=== PATIENT | male | born 1970 | race Caucasian/White ===

== ENCOUNTER 2022-01-26 17:33 | Inpatient (IN) | payer MEDICAID ==
[~2022-01-26] VITALS: Ht 190.5 cm; Wt 100.0 kg
[2022-01-26 19:06] LABS: BASOPHILS # (AUTO) 0.1 X10'3 (0-0.2); BASOPHILS % (AUTO) 0.4 % (0-1); EOSINOPHILS % (AUTO) 0.2 % (0-6); HEMATOCRIT 49.8 % (42.0-52.0); HEMOGLOBIN 17.1 g/dl (14.0-17.9); LYMPHOCYTES # (AUTO) 1.1 X10'3 (1.1-4.8); LYMPHOCYTES % (AUTO) 6.3 % (21-51); MEAN CORPUSCULAR HEMOGLOBIN 33.1 PG (27.0-31.0); MEAN CORPUSCULAR HGB CONC 34.4 g/dL (33.0-36.5); MEAN CORPUSCULAR VOLUME 96.3 FL (78-98); MEAN PLATELET VOLUME 8.1 FL (7.4-10.4); MONOCYTES # (AUTO) 0.8 X10'3 (0-0.9); MONOCYTES % (AUTO) 4.5 % (2-12); NEUTROPHILS # (AUTO) 15.9 X10'3 (1.8-7.7); NEUTROPHILS % (AUTO) 88.6 % (42-75); PLATELET COUNT 282 X10'3 (140-440); RED BLOOD COUNT 5.17 X10'6 (4.70-6.10); RED CELL DISTRIBUTION WIDTH 13.3 % (11.5-14.5); WHITE BLOOD COUNT 17.9 X10'3 (4.5-11.0)
[2022-01-26 19:24] LABS: ALANINE AMINOTRANSFERASE 53 U/L (12-78); ALKALINE PHOSPHATASE 81 IU/L (46-116); ANION GAP 10 (8-16); ASPARTATE AMINO TRANSFERASE 31 U/L (10-37); BILIRUBIN,TOTAL 0.8 MG/DL (0.1-1.0); BLOOD UREA NITROGEN 11 MG/DL (7-18); BUN/CREATININE RATIO 10.6 (5.4-32.0); CALCIUM 8.9 MG/DL (8.5-10.1); CHLORIDE 98 MMOL/L (99-107); CREATININE 1.04 MG/DL (0.60-1.10); GLUCOSE 122 MG/DL (70-104); LIPASE < 50 U/L (73-393); SODIUM 135 MMOL/L (135-145); TOTAL CARBON DIOXIDE 27.1 MMOL/L (24-32); TOTAL PROTEIN 8.1 G/DL (6.4-8.2); eGFR 75 ML/MIN
--- NOTE | 2022-01-26 21:49 | NUR ---
Patient reports abdominal pain circa 5 days and nausea and vomiting that began this morning.
[2022-01-26] MEDS ORDERED: pantoprazole 40MG/NS 100ML BAG 100 ML IV ONE (22:30)
[2022-01-26] MEDS ORDERED: ondansetron/PF 4mg/2ml inj IV ONE (22:30)
[2022-01-26] MEDS ORDERED: normal saline 1000ml 1,000 ML IV ONE (22:30)
[2022-01-26] MEDS ORDERED: ketorolac tromethamine 15mg/ml inj. IV ONE (22:30)
[2022-01-27] MEDS ORDERED: normal saline 1000ml 1,000 ML IV ONE (00:45)
[2022-01-27 00:55] LABS: CLARITY,URINE CLEAR (Clear); COLOR,URINE YELLOW (Yellow); GLUCOSE, URINE NEGATIVE (Neg); KETONES,URINE 15 mg/dl (Neg); LEUKOCYTE ESTERASE ,URINE NEGATIVE (Neg); NITRITES, URINE NEGATIVE (Neg); OCCULT BLOOD,URINE NEGATIVE (Neg); PH,URINE 6.5 (4.8-8.0); PROTEIN,URINE NEGATIVE (Neg); UROBILINOGEN,URINE 0.2 E.U/dL (0.2-1.0)
[2022-01-27] MEDS ORDERED: morphine 4 MG/ML inj SYRINge IV ONE (00:55)
[2022-01-27] MEDS ORDERED: piperacillin/tazo 3.375gm/50ml 50 ML IV SCH (01:02)
[2022-01-27 01:03] LABS: UA COLLECTION TYPE CLN CATCH MIDSTREAM
[2022-01-27] MEDS ORDERED: ondansetron/PF 4mg/2ml inj IV PRN (01:05)
[2022-01-27] MEDS ORDERED: magnesium Cl slow-release 64mg tablet PO PRN (01:05)
[2022-01-27] MEDS ORDERED: potassium CL 10mEq/100ml bag 100 ML IV PRN (01:05)
[2022-01-27] MEDS ORDERED: morphine 2 MG/ML inj. syringe IV PRN (01:05)
[2022-01-27] MEDS ORDERED: POTASSIUM BICARB 20meq eff tab 20 MEQ TABLET.EFF PO PRN ×2 (01:05)
[2022-01-27] MEDS ORDERED: acetaminophen 325mg tablet PO PRN (01:05)
[2022-01-27] MEDS ORDERED: magnesium 4gm in 100ml NS 100 ML IV PRN (01:05)
[2022-01-27] MEDS ORDERED: magnesium 2GM in 50ml NS 50 ML IV PRN (01:05)
[2022-01-27] MEDS: piperacillin/tazo 3.375gm/50ml 50 ML IV SCH ×3 (01:12→17:41)
[2022-01-27] MEDS: normal saline 1000ml 1,000 ML IV SCH ×2 (01:56→11:05)
[2022-01-27] MEDS ORDERED: NO HOME MEDS (02:47)
[2022-01-27] MEDS: morphine 2 MG/ML inj. syringe IV PRN ×3 (04:06→23:01)
[2022-01-27 06:46] LABS: POTASSIUM 3.8 MMOL/L (3.5-5.1)
[2022-01-27] MEDS: K and/or MAG REPLACEMENT MC SCH ×2 (08:00→20:00)
--- NOTE | 2022-01-27 17:22 | NUR ---
TELEPHONE REPORT TO YULISA QUESADA.
--- NOTE | 2022-01-27 17:50 | NUR ---
Received pt from ED via following receipt of report. Pt oriented to room & POC, bed low call light in reach.
--- NOTE | 2022-01-27 18:57 | NUR ---
Problems reprioritized. Patient report given, questions answered & plan of care reviewed with Anne RN.
[2022-01-27 22:00] VITALS: BP 142/87
[2022-01-28] VITALS (23 sets, daily range): BP systolic 115–141; BP diastolic 63–91
[2022-01-28] MEDS: piperacillin/tazo 3.375gm/50ml 50 ML IV SCH ×3 (00:46→16:10)
[2022-01-28] MEDS: normal saline 1000ml 1,000 ML IV SCH ×3 (00:47→20:38)
[2022-01-28 07:56] LABS: BASOPHILS % (AUTO) 0.4 % (0-1); EOSINOPHILS # (AUTO) 0.2 X10'3 (0-0.9); EOSINOPHILS % (AUTO) 1.6 % (0-6); HEMATOCRIT 44.5 % (42.0-52.0); HEMOGLOBIN 15.3 g/dl (14.0-17.9); LYMPHOCYTES # (AUTO) 2.2 X10'3 (1.1-4.8); LYMPHOCYTES % (AUTO) 18.8 % (21-51); MEAN CORPUSCULAR HEMOGLOBIN 33.6 PG (27.0-31.0); MEAN CORPUSCULAR HGB CONC 34.4 g/dL (33.0-36.5); MEAN CORPUSCULAR VOLUME 97.8 FL (78-98); MEAN PLATELET VOLUME 8.4 FL (7.4-10.4); MONOCYTES # (AUTO) 1.1 X10'3 (0-0.9); MONOCYTES % (AUTO) 9.3 % (2-12); NEUTROPHILS # (AUTO) 8.3 X10'3 (1.8-7.7); NEUTROPHILS % (AUTO) 69.9 % (42-75); PLATELET COUNT 227 X10'3 (140-440); RED BLOOD COUNT 4.55 X10'6 (4.70-6.10); RED CELL DISTRIBUTION WIDTH 13.5 % (11.5-14.5); WHITE BLOOD COUNT 11.8 X10'3 (4.5-11.0)
[2022-01-28] MEDS: K and/or MAG REPLACEMENT MC SCH ×2 (08:00→20:00)
[2022-01-28 08:08] LABS: ALBUMIN 3.4 G/DL (3.4-5.0); ANION GAP 9 (8-16); BLOOD UREA NITROGEN 10 MG/DL (7-18); BUN/CREATININE RATIO 10.1 (5.4-32.0); CALCIUM 8.3 MG/DL (8.5-10.1); CHLORIDE 107 MMOL/L (99-107); CREATININE 0.99 MG/DL (0.60-1.10); GLUCOSE 84 MG/DL (70-104); POTASSIUM 3.8 MMOL/L (3.5-5.1); SODIUM 141 MMOL/L (135-145); TOTAL CARBON DIOXIDE 24.6 MMOL/L (24-32); eGFR 80 ML/MIN
[2022-01-28 08:47] LABS: ALANINE AMINOTRANSFERASE 39 U/L (12-78); ALKALINE PHOSPHATASE 63 IU/L (46-116); ASPARTATE AMINO TRANSFERASE 28 U/L (10-37); BILIRUBIN,DIRECT 0.4 MG/DL (0-0.3); BILIRUBIN,TOTAL 1.2 MG/DL (0.1-1.0); TOTAL PROTEIN 6.9 G/DL (6.4-8.2)
[2022-01-28 09:28] LABS: APTT 27 SECONDS (22-32)
[2022-01-28] MEDS: morphine 2 MG/ML inj. syringe IV PRN ×2 (09:46→20:39)
[2022-01-28] MEDS ORDERED: BUPIVAcaine/PF 2.5 mg/ml (0.25%) 30ml vial ONE (14:43)
--- NOTE | 2022-01-28 15:20 | NUR ---
Pt transferred to OR via bed. Report given to Recovery Room nurse.
[2022-01-28] MEDS ORDERED: proCHLORperazine 10 MG/2 ml inj IV PRN (15:50)
[2022-01-28] MEDS ORDERED: morphine 2 MG/ML inj. syringe IV PRN (15:50)
[2022-01-28] MEDS ORDERED: ringers solution, lacted 1,000 ML IV SCH (15:50)
[2022-01-28] MEDS ORDERED: ondansetron/PF 4mg/2ml inj IV PRN (15:50)
[2022-01-28] MEDS ORDERED: meperidine/PF 25mg/ml syringe IV PRN ×2 (15:50)
[2022-01-28] MEDS ORDERED: morphine 4 MG/ML inj SYRINge IV PRN (15:50)
[2022-01-28] MEDS ORDERED: rocuronium 10mg/ml inj IV ONE (16:00)
[2022-01-28] MEDS ORDERED: propofol inj 20 ML IV ONE (16:00)
[2022-01-28] MEDS ORDERED: fentaNYL /PF 50mcg/ml 5ml ampule ONE (16:00)
[2022-01-28] MEDS ORDERED: midazolam 1 mg/ML 2ml injection ONE (16:00)
[2022-01-28] MEDS ORDERED: sevoflurane 250ml liquid IH ONE (16:02)
[2022-01-28] MEDS ORDERED: ondansetron/PF 4mg/2ml inj ONE (17:15)
[2022-01-28] MEDS ORDERED: dexamethasone sod phosphate 4mg/ml inj. ONE (17:15)
[2022-01-28] MEDS ORDERED: neostigmine methylsulfate 1 MG/ML 10ml vial ONE (17:27)
[2022-01-28] MEDS ORDERED: glycopyrrolate 0.2mg/ml inj ONE (17:27)
--- NOTE | 2022-01-28 17:34 | NUR ---
Received from OR via [facility], accompanied by Anesthesiologist DR DUNN and report given by Anesthesiolgist AND LOG POND WORKER. PT DROWSY, SOMEWHAT RESTLESS BUT QUICKLY SETTLED DOWN. 4 LAP SITES ON ABD WITH STERISTRIPS/CDI. Addendum: 01/28/22 at 1802 by Altagracia Omalley RN Amended: Links added.
[2022-01-28] MEDS: meperidine/PF 25mg/ml syringe IV PRN ×2 (18:04→18:25)
--- NOTE | 2022-01-28 19:24 | NUR ---
Report called to receiving nurse. Transferred via BED, NO Belongings, RECEIVING NURSE AT BEDSIDE TO RECEIVE PT, BLL, CALL LIGHT GIVEN, SIDERAILS UP X2, AT BEDSIDE. Special Issues communicated to receiving nurse. Addendum: 01/28/22 at 1934 by Altagracia Omalley RN Amended: Links added.
[2022-01-29] MEDS: piperacillin/tazo 3.375gm/50ml 50 ML IV SCH ×2 (00:07→08:04)
[2022-01-29 02:00] VITALS: BP 146/75
[2022-01-29] MEDS: normal saline 1000ml 1,000 ML IV SCH ×2 (03:05→13:05)
[2022-01-29 06:00] VITALS: BP 127/78
--- NOTE | 2022-01-29 06:10 | NUR ---
Problems reprioritized. Patient report given, questions answered & plan of care reviewed with YULISA Owens.
[2022-01-29 06:32] LABS: BASOPHILS # (AUTO) 0.1 X10'3 (0-0.2); BASOPHILS % (AUTO) 0.7 % (0-1); EOSINOPHILS % (AUTO) 0 % (0-6); HEMATOCRIT 46.3 % (42.0-52.0); LYMPHOCYTES % (AUTO) 5.2 % (21-51); MEAN CORPUSCULAR HEMOGLOBIN 33.2 PG (27.0-31.0); MEAN CORPUSCULAR HGB CONC 34.6 g/dL (33.0-36.5); MEAN CORPUSCULAR VOLUME 95.9 FL (78-98); MEAN PLATELET VOLUME 8.5 FL (7.4-10.4); NEUTROPHILS # (AUTO) 17.5 X10'3 (1.8-7.7); NEUTROPHILS % (AUTO) 89.1 % (42-75); PLATELET COUNT 278 X10'3 (140-440); RED BLOOD COUNT 4.83 X10'6 (4.70-6.10); RED CELL DISTRIBUTION WIDTH 12.6 % (11.5-14.5); WHITE BLOOD COUNT 19.6 X10'3 (4.5-11.0)
[2022-01-29 07:22] LABS: ALANINE AMINOTRANSFERASE 82 U/L (12-78); ALBUMIN 3.4 G/DL (3.4-5.0); ALBUMIN/GLOBULIN RATIO 0.9 (1.1-1.5); ALKALINE PHOSPHATASE 68 IU/L (46-116); ANION GAP 11 (8-16); ASPARTATE AMINO TRANSFERASE 60 U/L (10-37); BILIRUBIN,TOTAL 0.9 MG/DL (0.1-1.0); BLOOD UREA NITROGEN 9 MG/DL (7-18); BUN/CREATININE RATIO 9.6 (5.4-32.0); CALCIUM 8.7 MG/DL (8.5-10.1); CHLORIDE 106 MMOL/L (99-107); CREATININE 0.94 MG/DL (0.60-1.10); GLUCOSE 128 MG/DL (70-104); POTASSIUM 3.9 MMOL/L (3.5-5.1); SODIUM 139 MMOL/L (135-145); TOTAL CARBON DIOXIDE 22.5 MMOL/L (24-32); TOTAL PROTEIN 7.4 G/DL (6.4-8.2); eGFR 85 ML/MIN
[2022-01-29] MEDS: K and/or MAG REPLACEMENT MC SCH (08:00)
[2022-01-29] MEDS: morphine 2 MG/ML inj. syringe IV PRN (09:18)
--- NOTE | 2022-01-29 09:35 | NUR ---
MESSAGE: Graciela cole [id number] re: Phoebe Qureshi7. Need po pain med at your earliest convenience. thank you
[2022-01-29 10:04] VITALS: BP 134/88
[2022-01-29] MEDS ORDERED: HYDROcodone/acetaminophen 10/325mg tab PO PRN (10:05)
[2022-01-29] MEDS ORDERED: HYDROcodone/acetaminophen 5mg/325mg tablet PO PRN (10:05)
[2022-01-29] MEDS ORDERED: HYDROmorphone inj. 0.5 MG/0.5 ML DISP.SYRIN IV PRN (10:05)
[2022-01-29] MEDS ORDERED: HYDR-3965 PO (13:09)
[2022-01-29] MEDS ORDERED: AMOX-117 PO (13:09)
--- NOTE | 2022-01-29 14:36 | NUR ---
Patient discharged in stable condition to home with . iv removed tip intact no complications. belongings sent with pt. pt discharged in private vehicle
== END 2022-01-29 14:25 | disposition home or self-care (01) | DRG 263 ==
LOC: ER 17:36 → ED HOLD 01-27 01:05 → ORTHO 4S 01-27 17:50
PROVIDERS: ADMIT Internal Medicine; ATTEND Internal Medicine
PROC: 0FT44ZZ Resection of Gallbladder, Percutaneous Endoscopic Approach (ICD-10-PCS; principal; 2022-01-28 16:02)
DX: K80.62 Calculus of gallbladder and bile duct with acute cholecystitis without obstruction (principal); E66.9 Obesity, unspecified; F17.210 Nicotine dependence, cigarettes, uncomplicated; Z20.822 Contact with and (suspected) exposure to COVID-19; Z68.27 Body mass index [BMI] 27.0-27.9, adult; Z88.8 Allergy status to other drugs, medicaments and biological substances; Z28.310 Unvaccinated for COVID-19; Z71.6 Tobacco abuse counseling
CPT/HCPCS: 36415; 76700; 80048; 80053; 80076; 81003; 82948; 83690; 83735; 84132; 85025; 85610; 85730; 87081; 87811; 93005; 96365; 96375; 99285; A4215; A4618; A7000; C9113; G0378; J1100; J1885; J2175; J2250; J2270; J2405; J2543; J2704; J2710; J3010; J3490; J7030; J7120